=== PATIENT | male | born 1975 | race Caucasian/White ===

== ENCOUNTER 2016-06-25 22:43 | Emergency (ER) | payer OTHER | END 2016-06-26 04:46 | disposition home or self-care (01) | LOC: ER1 22:43 | DX: S20.229A Contusion of unspecified back wall of thorax, initial encounter (principal); F17.210 Nicotine dependence, cigarettes, uncomplicated; Z88.0 Allergy status to penicillin; W22.8XXA Striking against or struck by other objects, initial encounter | CPT/HCPCS: 71020; 72128; 96372; 99283; J1885 ==

== ENCOUNTER 2016-07-31 10:03 | Emergency (ER) | payer OTHER ==
[2016-07-31 11:01] LABS: HEMOGLOBIN 13.9 gm/dl (14.0-17.5); RED BLOOD COUNT 4.75 M/UL (4.20-5.50); WHITE BLOOD COUNT 5.9 K/UL (4.5-11.0)
[2016-07-31 11:24] LABS: BUN/CREATININE RATIO 23 (0-10)
== END 2016-07-31 14:30 | disposition left against medical advice (07) ==
LOC: ER1 10:03
PROVIDERS: Physician Assistant
DX: K75.9 Inflammatory liver disease, unspecified (principal); E87.6 Hypokalemia; E80.6 Other disorders of bilirubin metabolism; R18.8 Other ascites; F17.210 Nicotine dependence, cigarettes, uncomplicated; Z88.5 Allergy status to narcotic agent; Z85.528 Personal history of other malignant neoplasm of kidney; Z85.118 Personal history of other malignant neoplasm of bronchus and lung
CPT/HCPCS: 36415; 71010; 80053; 80074; 80307; 81001; 82140; 82150; 83690; 85025; 85610; 85730; 93005; 96361; 96374; 96375; 99284; J2270; J2405; J7030; J7050; Q9962

== ENCOUNTER 2020-11-29 12:36 | Emergency (ER) | payer OTHER ==
[~2020-11-29 12:36] MED LIST: CORTIZONE-1057 GM TP; PREDNISONE 50 M50 MG PO
[2020-11-29] MEDS ORDERED: HYDROCODON-ACE1 EAC4 PO (15:58)
== END 2020-11-29 16:20 | disposition home or self-care (01) ==
LOC: ER1 12:36
DX: S92.412A Displaced fracture of proximal phalanx of left great toe, initial encounter for closed fracture (principal); F17.200 Nicotine dependence, unspecified, uncomplicated; W22.8XXA Striking against or struck by other objects, initial encounter
CPT/HCPCS: 29515; 73590; 73610; 73630; 99283

== ENCOUNTER 2021-01-07 21:50 | Emergency (ER) | payer OTHER ==
[~2021-01-07 21:50] MED LIST changes: +HYDROCODON-ACE1 EAC4 PO
[2021-01-07] MEDS ORDERED: CEPHALEXIN500 M1 PO (22:50)
[2021-01-07] MEDS ORDERED: IBUPROFEN600 MG PO (22:51)
== END 2021-01-07 23:10 | disposition home or self-care (01) ==
LOC: ER1 21:50
DX: S01.132A Puncture wound without foreign body of left eyelid and periocular area, initial encounter (principal); S00.262A Insect bite (nonvenomous) of left eyelid and periocular area, initial encounter; Z88.8 Allergy status to other drugs, medicaments and biological substances; Z88.6 Allergy status to analgesic agent; W26.8XXA Contact with other sharp object(s), not elsewhere classified, initial encounter
CPT/HCPCS: 96372; 99283; J1100